=== PATIENT | female | born 1955 | race Caucasian/White ===

== ENCOUNTER 2016-07-30 12:36 | Emergency (ER) | payer OTHER ==
--- NOTE | 2016-07-30 15:58 | ED NURSING NOTES ---
Clinical Report - Nurses [facility] [place] [address] 07/30/2016 12:40 Patient: SUNDAR CARTER TRIAGE Triage time 12:47. Acuity: LEVEL 3. Chief Complaint: DIZZINESS and WEAKNESS and (fatigued). Alert. --13:00 Yvrose Solorzano R.N. 12:46 07/30/16. BP: 150/68. HR: 67. RR: 18. O2 saturation: 95%. Temp: 98.3 F. Pain level now: 07/16. Additional comments: Pt states her neck muscles feel tight and painful, rates it 07/16. --13:00 Yvrose Solorzano R.N. Weight: 49.8 kg stated. Height/Length: 65 inches Per Patient. BMI: 18.3. --12:54 Yvrose Solorzano R.N. Medications Vitamin D Oral. --13:03 Yvrose Solorzano R.N. Allergies No Known Drug Allergy. --12:53 Yvrose Solorzano R.N. History Arrived by private vehicle. Historian: patient. Accompanied by spouse. Primary physician (William). This started sinus pain for 2 weeks ago, was seen at [facility] 7 days ago, and seen today at [facility], states neck x ray was normal. She has had nausea. PAST MEDICAL HX: Immunizations: up-to-date. SOCIAL HX: Former smoker, end date 11/2015. No alcohol use or drug use. No infectious disease exposure. NUTRITIONAL RISK ASSESSMENT: The nutritional risk assessment revealed no deficiencies. FUNCTIONAL ASSESSMENT: Functional assessment: no impairments noted. --13:00 Yvrose Solorzano R.N. PROBLEMS: Hypercholesterolemia. --12:56 Yvrose Solorzano R.N. ADDITIONAL SURGERIES: . --12:56 Yvrose Solorzano R.N. Interventions ID band on patient. To room. --13:00 Yvrose Solorzano R.N. PHYSICAL ASSESSMENT 13:11 07/30/16. Patient gowned. GENERAL / NEURO / PSYCH: Oriented X 4. Alert. --13:11 Yvrose Solorzano R.N. GENERAL / NEURO / PSYCH: ( [facility] sent pt over, stated BP was 191/91.). --13:16 Yvrose Solorzano R.N. NURSING PROGRESS NOTES 13:10 07/30/2016 Site #1 started via IV in the right forearm with an 20g angiocath, with aseptic technique and good blood return; one attempt. Blood drawn: rainbow set. Labeled in the presence of the patient and sent to the lab. Saline lock flushed with 10 mL saline. --13:10 Yvrose Solorzano R.N. 14:31 07/30/16. BP: 133/50 taken while lying. HR: 58. --14:31 Yvrose Solorzano R.N. 14:31 07/30/16. BP: 143/76 taken while sitting. HR: 62. RR: 18. --14:32 Yvrose Solorzano R.N. 14:32 07/30/16. BP: 128/69. HR: 61. RR: 17. Additional comments: standing. --14:33 Yvrose Solorzano R.N. EKG time: (14:24). EKG was performed by a tech and shown to the ED physician. --14:46 Jazmín Elliott 15:00 07/30/16. BP: 125/64. HR: 59. RR: 18. O2 saturation: 94%. --16:16 Yvrose Solorzano R.N. late entry - 12:50. Head of bed elevated. Reassurance given. Patient identifiers checked. Call light placed in reach. Bed placed in lowest position. Patient ready for evaluation- chart flagged and ED physician notified. --16:17 Yvrose Solorzano R.N. DISPOSITION / DISCHARGE Departure time: 1600. Condition at departure: improved. No learning barriers present. Discharge instructions provided and reviewed with the patient and spouse. Reviewed warnings (use slow, shallow breathing with a assistant softball coach for dizziness). Reviewed medication(s) side effects information. Prescription(s) given to the patient. Reviewed referral to family practice for followup. Patient and spouse verbalized understanding. Written instructions provided. The patient was discharged home and accompanied by spouse. She left the Emergency Department ambulatory and via private vehicle. --16:19 Yvrose Solorzano R.N. 16:00 07/30/16. BP: 136/63. HR: 61. RR: 18. O2 saturation: 95%. --16:19 Yvrose Solorzano R.N. Locked/Released at 07/30/2016 16:20 by Yvrose Solorzano R.N.
--- NOTE | 2016-07-30 15:58 | ED CLINICAL REPORT ---
Clinical Report - Physicians/Mid Levels [facility] [address] [place] [address] 07/30/2016 12:40 [id number] Time Seen: 13:59. HISTORY OF PRESENT ILLNESS Chief Complaint: DIZZINESS. Severity described as moderate at its maximum. When seen in the E.D., it was almost gone. Modifying factors- (Worse when standing.). Not described as a sense of rotation, movement or confusion. Described as feeling off balance, light-headed, faint and weak all over. This started 1 weeks and is still present. It has been waxing/waning. No nausea, vomiting, hearing loss, tinnitus or ear pain. (Off balance and seasick Intermittently and neck hurting for 2 weeks. Today Ms Carter noted that limbs felt heavy and that both arms and both legs felt tingly and she felt as though she might faint.). Similar symptoms previously: Once. ( Years ago). Recent medical care: The patient was seen recently by a health care provider. ( Neck pain Chiropractor [facility] sent here). REVIEW OF SYSTEMS No headache, double vision, chest pain, black stools or bloody stools. No fever, sore throat, cough, difficulty breathing or abdominal pain. No difficulty with urination or chills. The patient has had mild palpitations (fast). She has had numbness. R L arm >leg tingling. PAST HISTORY ( PCP: Dr Chichi Hand/García Ops: Hosp None: Dyslipidemia, vertigo, migraines as teen.). Medications: Vitamin D Oral. Allergies: No Known Drug Allergy. ADDITIONAL NOTES The nursing notes have been reviewed. PHYSICAL EXAM Vital Signs: 07/30/2016 16:00 BP: 136/63. HR: 61. RR: 18. O2 saturation: 95%. 07/30/2016 15:00 BP: 125/64. HR: 59. RR: 18. O2 saturation: 94%. 07/30/2016 14:32 BP: 128/69. HR: 61. RR: 17. 07/30/2016 14:31 BP: 143/76. HR: 62. RR: 18. 07/30/2016 14:31 BP: 133/50. HR: 58. 07/30/2016 12:46 BP: 150/68. HR: 67. RR: 18. O2 saturation: 95%. Temp: 98.3 F. Pain level now: 10. Appearance: Alert. No acute distress. Eyes: Pupils equal, round and reactive to light. ENT: Moist mucous membranes. Pharynx normal. Neck: Normal inspection. Neck supple. No carotid bruit. (Mild paraspinous tenderness). CVS: Normal heart rate and rhythm. Heart sounds normal. Respiratory: No respiratory distress. Breath sounds normal. Abdomen: Soft and nontender. Skin: Skin warm. Normal skin color. No rash. Extremities: Extremities exhibit normal ROM. No lower extremity edema. Neuro: Awake. Alert. Oriented X 3. No aphasia. Mood/affect normal. Speech normal. No dysphasia or dysarthria. Cranial nerves II through XII intact. No cerebellar findings. Normal gait. Motor deficit noted. Sensory deficit noted. LABS, X-RAYS, AND EKG EKG: No acute ischemia. Bradycardia. Normal P waves. Normal ABRAHAM. Left anterior fascicular block. Normal ST and T waves. Laboratory Tests: CBC w Diff: (MEHRDAD: 07/30/2016 13:11) ( MsgRcvd 07/30/2016 14:47) Final results Test Result Flag Units (Reference) WHITE BLOOD COUNT 4.6 K/uL (4.5-11.5) RED BLOOD COUNT 4.79 M/uL (4.00-5.20) HEMOGLOBIN 14.5 gm/dL (12.0-16.0) HEMATOCRIT 44.4 % (36.0-46.0) MEAN CELL VOLUME 93 fL (80-100) MEAN CORPUSCULAR HGB 30 pg (26-34) MEAN CORPUSCULAR HGB CONC 33 g/dL (31-37) RED CELL DISTRIBUTION WIDTH 13.6 % (11.6-14.8) PLATELET COUNT 166 K/uL (150-400) NEUTROPHIL % 76.9 H % (50-75) LYMPH % 13.9 L % (25-40) MONO % 7.7 % (3-14) EOSINOPHIL % 1.1 % (0-4) BASOPHIL % 0.4 % (0-2) CMP: (MEHRDAD: 07/30/2016 13:11) ( MsgRcvd 07/30/2016 14:32) Final results Test Result Flag Units (Reference) GLUCOSE 103 mg/dL (70-110) BUN 12 mg/dL (7-18) CREATININE 0.7 mg/dL (0.6-1.3) Estimated GFR >60 mL/min Estimated GFR- >60 mL/min Note: Persistent reduction over 3 months in eGFR<60 mL/min/1.73 m2 defines CKD. Patients with eGFR values>=60 mL/min/1.73 m2 may also have CKD if evidence ofpersistent proteinuria. Additional information may be foundat www.kidney.org. SODIUM 141 mmol/L (136-145) POTASSIUM 4.0 mmol/L (3.5-5.1) CHLORIDE 103 mmol/L (98-107) CARBON DIOXIDE 25 mmol/L (21-32) CALCIUM 9.2 mg/dL (8.5-10.1) TOTAL PROTEIN 7.3 g/dL (6.4-8.2) ALBUMIN 4.2 g/dL (3.3-5.0) BILIRUBIN, TOTAL 0.5 mg/dL (0.0-1.0) ALKALINE PHOSPHATASE 77 U/L (46-116) AST (SGOT) 19 U/L (15-37) ALT (SGPT) 27 U/L (12-78) . PROGRESS AND PROCEDURES Course of Care: 15:35 07/30/16. Labs are negative She was also sent from the [facility] with history of extreme hypertension. With no specific treatment her marked hypertension resolved to near normal levels. The single diagnosis which fits most of the patients signs and symptoms is hyperventilation syndrome. She will need follow up. Differential Diagnosis: I considered hypovolemia, pulmonary embolism, arrhythmia, myocardial infarction, aortic stenosis, aortic dissection, seizure, hypoxia and hypoglycemia as a possible cause of syncope in this patient. This is a partial list of diagnoses considered. I considered labyrinthitis, brainstem TIA and brainstem CVA as a possible cause of dizziness in this patient. I considered epilepsy, alcohol related etiology, overdose and abnormal serum glucose as a possible cause of seizure in this patient. I considered gastritis and gastroenteritis as a possible cause of GI bleed in this patient. Wells clinical prediction rule (PE): No clinical symptoms of DVT, other diagnosis less likely than PE, immobilization or surgery within 4wks, previous DVT or PE or hemoptysis. No malignancy. Heart rate less than 100 per minute. Disposition: Discharged. Condition: good. CLINICAL IMPRESSION Dizziness. Cervical strain. Probable acute hyperventilation syndrome INSTRUCTIONS (ROBAXIN FOR THE NECK MUSCLES SLOW SHALLOW BREATHING WITH A LOGISTICS ASSISTANT FOR THE DIZZINESS. SEE YOUR PCP). Prescription Medications: Robaxin 750 mg: Take 2 orally every 6 hours as needed for muscle spasm. Dispense thirty (30). No refills. Substitution is permissible. Follow-up: Follow up with doctor in ten days. Understanding of the discharge instructions verbalized by patient. (Electronically signed by Brando Teague MD 08/01/2016 12:57)
--- NOTE | 2016-07-30 15:58 | ED CLINICAL REPORT ---
Clinical Report - Physicians/Mid Levels [facility] [address] [place] [address] 07/30/2016 12:40 [id number] Time Seen: 13:59. HISTORY OF PRESENT ILLNESS Chief Complaint: DIZZINESS. Severity described as moderate at its maximum. When seen in the E.D., it was almost gone. Modifying factors- (Worse when standing.). Not described as a sense of rotation, movement or confusion. Described as feeling off balance, light-headed, faint and weak all over. This started 1 weeks and is still present. It has been waxing/waning. No nausea, vomiting, hearing loss, tinnitus or ear pain. (Off balance and seasick Intermittently and neck hurting for 2 weeks. Today Ms Carter noted that limbs felt heavy and that both arms and both legs felt tingly and she felt as though she might faint.). Similar symptoms previously: Once. ( Years ago). Recent medical care: The patient was seen recently by a health care provider. ( Neck pain Chiropractor [facility] sent here). REVIEW OF SYSTEMS No headache, double vision, chest pain, black stools or bloody stools. No fever, sore throat, cough, difficulty breathing or abdominal pain. No difficulty with urination or chills. The patient has had mild palpitations (fast). She has had numbness. R L arm >leg tingling. PAST HISTORY ( PCP: Dr Chichi Hnad/García Ops: Hosp None: Dyslipidemia, vertigo, migraines as teen.). Medications: Vitamin D Oral. Allergies: No Known Drug Allergy. ADDITIONAL NOTES The nursing notes have been reviewed. PHYSICAL EXAM Vital Signs: 07/30/2016 16:00 BP: 136/63. HR: 61. RR: 18. O2 saturation: 95%. 07/30/2016 15:00 BP: 125/64. HR: 59. RR: 18. O2 saturation: 94%. 07/30/2016 14:32 BP: 128/69. HR: 61. RR: 17. 07/30/2016 14:31 BP: 143/76. HR: 62. RR: 18. 07/30/2016 14:31 BP: 133/50. HR: 58. 07/30/2016 12:46 BP: 150/68. HR: 67. RR: 18. O2 saturation: 95%. Temp: 98.3 F. Pain level now: 10. Appearance: Alert. No acute distress. Eyes: Pupils equal, round and reactive to light. ENT: Moist mucous membranes. Pharynx normal. Neck: Normal inspection. Neck supple. No carotid bruit. (Mild paraspinous tenderness). CVS: Normal heart rate and rhythm. Heart sounds normal. Respiratory: No respiratory distress. Breath sounds normal. Abdomen: Soft and nontender. Skin: Skin warm. Normal skin color. No rash. Extremities: Extremities exhibit normal ROM. No lower extremity edema. Neuro: Awake. Alert. Oriented X 3. No aphasia. Mood/affect normal. Speech normal. No dysphasia or dysarthria. Cranial nerves II through XII intact. No cerebellar findings. Normal gait. Motor deficit noted. Sensory deficit noted. LABS, X-RAYS, AND EKG EKG: No acute ischemia. Bradycardia. Normal P waves. Normal ABRAHAM. Left anterior fascicular block. Normal ST and T waves. Laboratory Tests: CBC w Diff: (MEHRDAD: 07/30/2016 13:11) ( MsgRcvd 07/30/2016 14:47) Final results Test Result Flag Units (Reference) WHITE BLOOD COUNT 4.6 K/uL (4.5-11.5) RED BLOOD COUNT 4.79 M/uL (4.00-5.20) HEMOGLOBIN 14.5 gm/dL (12.0-16.0) HEMATOCRIT 44.4 % (36.0-46.0) MEAN CELL VOLUME 93 fL (80-100) MEAN CORPUSCULAR HGB 30 pg (26-34) MEAN CORPUSCULAR HGB CONC 33 g/dL (31-37) RED CELL DISTRIBUTION WIDTH 13.6 % (11.6-14.8) PLATELET COUNT 166 K/uL (150-400) NEUTROPHIL % 76.9 H % (50-75) LYMPH % 13.9 L % (25-40) MONO % 7.7 % (3-14) EOSINOPHIL % 1.1 % (0-4) BASOPHIL % 0.4 % (0-2) CMP: (MEHRDAD: 07/30/2016 13:11) ( MsgRcvd 07/30/2016 14:32) Final results Test Result Flag Units (Reference) GLUCOSE 103 mg/dL (70-110) BUN 12 mg/dL (7-18) CREATININE 0.7 mg/dL (0.6-1.3) Estimated GFR >60 mL/min Estimated GFR- >60 mL/min Note: Persistent reduction over 3 months in eGFR<60 mL/min/1.73 m2 defines CKD. Patients with eGFR values>=60 mL/min/1.73 m2 may also have CKD if evidence ofpersistent proteinuria. Additional information may be foundat www.kidney.org. SODIUM 141 mmol/L (136-145) POTASSIUM 4.0 mmol/L (3.5-5.1) CHLORIDE 103 mmol/L (98-107) CARBON DIOXIDE 25 mmol/L (21-32) CALCIUM 9.2 mg/dL (8.5-10.1) TOTAL PROTEIN 7.3 g/dL (6.4-8.2) ALBUMIN 4.2 g/dL (3.3-5.0) BILIRUBIN, TOTAL 0.5 mg/dL (0.0-1.0) ALKALINE PHOSPHATASE 77 U/L (46-116) AST (SGOT) 19 U/L (15-37) ALT (SGPT) 27 U/L (12-78) . PROGRESS AND PROCEDURES Course of Care: 15:35 07/30/16. Labs are negative She was also sent from the [facility] with history of extreme hypertension. With no specific treatment her marked hypertension resolved to near normal levels. The single diagnosis which fits most of the patients signs and symptoms is hyperventilation syndrome. She will need follow up. Differential Diagnosis: I considered hypovolemia, pulmonary embolism, arrhythmia, myocardial infarction, aortic stenosis, aortic dissection, seizure, hypoxia and hypoglycemia as a possible cause of syncope in this patient. This is a partial list of diagnoses considered. I considered labyrinthitis, brainstem TIA and brainstem CVA as a possible cause of dizziness in this patient. I considered epilepsy, alcohol related etiology, overdose and abnormal serum glucose as a possible cause of seizure in this patient. I considered gastritis and gastroenteritis as a possible cause of GI bleed in this patient. Wells clinical prediction rule (PE): No clinical symptoms of DVT, other diagnosis less likely than PE, immobilization or surgery within 4wks, previous DVT or PE or hemoptysis. No malignancy. Heart rate less than 100 per minute. Disposition: Discharged. Condition: good. CLINICAL IMPRESSION Dizziness. Cervical strain. Probable acute hyperventilation syndrome INSTRUCTIONS (ROBAXIN FOR THE NECK MUSCLES SLOW SHALLOW BREATHING WITH A PARACHUTE/COMBATANT DIVER OFFICER FOR THE DIZZINESS. SEE YOUR PCP). Prescription Medications: Robaxin 750 mg: Take 2 orally every 6 hours as needed for muscle spasm. Dispense thirty (30). No refills. Substitution is permissible. Follow-up: Follow up with doctor in ten days. Understanding of the discharge instructions verbalized by patient. (Electronically signed by Brando Teague MD 08/01/2016 12:57)
--- NOTE | 2016-07-30 15:58 | ED ORDER SUMMARY ---
..... Patient: SUNDAR CARTER OrderSheet [facility] VisitID: [id number] [place] [address] 60y, F Registration Date/Time: 07/30/2016 ORDER SHEET Weight: 49.8 kg (stated) Allergies: No Known Drug Allergy GENERAL ORDERS: EKG - ER Stat (14:10 07/30/2016 Dariana AGUILAR) (14:43 Jose) CBC w Diff Urgent (14:17 07/30/2016 Dariana AGUILAR) (Ack 14:43 Jose) (14:47 ALawrence ER Tech1) CMP Urgent (14:17 07/30/2016 Dariana AGUILAR) (Ack 14:43 Jose) (14:47 ALawrence ER Tech1) Vitals - Orthostatic (14:17 07/30/2016 Dariana AGUILAR) (14:33 LS[place] R.N.) MEDICATION ORDERS: IV FLUIDS: IV Saline Lock (13:09 07/30/2016 LSullivan R.N. verbal order read back to Dariana AGUILAR) (13:10 LS[place] R.N.) ORDER SHEET NOTES: [Electronically signed by Yvrose Solorzano R.N. (16:20 07/30/2016)] [Electronically signed by Brando Teague MD (12:57 08/01/2016)] [Electronically locked/signed by Yvrose Solorzano R.N. (16:20 07/30/2016)]
--- NOTE | 2016-07-30 15:58 | ED ORDER SUMMARY ---
..... Patient: SUNDAR CARTER OrderSheet [facility] VisitID: [id number] [place] [address] 60y, F Registration Date/Time: 07/30/2016 ORDER SHEET Weight: 49.8 kg (stated) Allergies: No Known Drug Allergy GENERAL ORDERS: EKG - ER Stat (14:10 07/30/2016 Dariana AGUILAR) (14:43 Jose) CBC w Diff Urgent (14:17 07/30/2016 Dariana AGUILAR) (Ack 14:43 Jose) (14:47 ALawrence ER Tech1) CMP Urgent (14:17 07/30/2016 Dariana AGUILAR) (Ack 14:43 Jose) (14:47 ALawrence ER Tech1) Vitals - Orthostatic (14:17 07/30/2016 Dariana AGUILAR) (14:33 LS[place] R.N.) MEDICATION ORDERS: IV FLUIDS: IV Saline Lock (13:09 07/30/2016 LS[place] R.N. verbal order read back to Dariana AGUILAR) (13:10 LS[place] R.N.) ORDER SHEET NOTES: [Electronically signed by Yvrose Solorzano R.N. (16:20 07/30/2016)] [Electronically signed by Brando Teague MD (12:57 08/01/2016)] [Electronically locked/signed by Yvrose Solorzano R.N. (16:20 07/30/2016)]
--- NOTE | 2016-07-30 15:58 | ED NURSING NOTES ---
Clinical Report - Nurses [facility] [place] [address] 07/30/2016 12:40 Patient: SUNDAR CARTER TRIAGE Triage time 12:47. Acuity: LEVEL 3. Chief Complaint: DIZZINESS and WEAKNESS and (fatigued). Alert. --13:00 Yvrose Solorzano R.N. 12:46 07/30/16. BP: 150/68. HR: 67. RR: 18. O2 saturation: 95%. Temp: 98.3 F. Pain level now: 07/16. Additional comments: Pt states her neck muscles feel tight and painful, rates it 07/16. --13:00 Yvrose Solorzano R.N. Weight: 49.8 kg stated. Height/Length: 65 inches Per Patient. BMI: 18.3. --12:54 Yvrose Solorzano R.N. Medications Vitamin D Oral. --13:03 Yvrose Solorzano R.N. Allergies No Known Drug Allergy. --12:53 Yvrose Solorzano R.N. History Arrived by private vehicle. Historian: patient. Accompanied by spouse. Primary physician (William). This started sinus pain for 2 weeks ago, was seen at [facility] 7 days ago, and seen today at [facility], states neck x ray was normal. She has had nausea. PAST MEDICAL HX: Immunizations: up-to-date. SOCIAL HX: Former smoker, end date 11/2015. No alcohol use or drug use. No infectious disease exposure. NUTRITIONAL RISK ASSESSMENT: The nutritional risk assessment revealed no deficiencies. FUNCTIONAL ASSESSMENT: Functional assessment: no impairments noted. --13:00 Yvrose Solorzano R.N. PROBLEMS: Hypercholesterolemia. --12:56 Yvrose Solorzano R.N. ADDITIONAL SURGERIES: . --12:56 Yvrose Solorzano R.N. Interventions ID band on patient. To room. --13:00 Yvrose Solorzano R.N. PHYSICAL ASSESSMENT 13:11 07/30/16. Patient gowned. GENERAL / NEURO / PSYCH: Oriented X 4. Alert. --13:11 Yvrose Solorzano R.N. GENERAL / NEURO / PSYCH: ( [facility] sent pt over, stated BP was 191/91.). --13:16 Yvrose Solorzano R.N. NURSING PROGRESS NOTES 13:10 07/30/2016 Site #1 started via IV in the right forearm with an 20g angiocath, with aseptic technique and good blood return; one attempt. Blood drawn: rainbow set. Labeled in the presence of the patient and sent to the lab. Saline lock flushed with 10 mL saline. --13:10 Yvrose Solorzano R.N. 14:31 07/30/16. BP: 133/50 taken while lying. HR: 58. --14:31 Yvrose Solorzano R.N. 14:31 07/30/16. BP: 143/76 taken while sitting. HR: 62. RR: 18. --14:32 Yvrose Solorzano R.N. 14:32 07/30/16. BP: 128/69. HR: 61. RR: 17. Additional comments: standing. --14:33 Yvrose Solorzano R.N. EKG time: (14:24). EKG was performed by a tech and shown to the ED physician. --14:46 Jazmín Elliott 15:00 07/30/16. BP: 125/64. HR: 59. RR: 18. O2 saturation: 94%. --16:16 Yvrose Solorzano R.N. late entry - 12:50. Head of bed elevated. Reassurance given. Patient identifiers checked. Call light placed in reach. Bed placed in lowest position. Patient ready for evaluation- chart flagged and ED physician notified. --16:17 Yvrose Solorzano R.N. DISPOSITION / DISCHARGE Departure time: 1600. Condition at departure: improved. No learning barriers present. Discharge instructions provided and reviewed with the patient and spouse. Reviewed warnings (use slow, shallow breathing with a softball coach for dizziness). Reviewed medication(s) side effects information. Prescription(s) given to the patient. Reviewed referral to family practice for followup. Patient and spouse verbalized understanding. Written instructions provided. The patient was discharged home and accompanied by spouse. She left the Emergency Department ambulatory and via private vehicle. --16:19 Yvrose Solorzano R.N. 16:00 07/30/16. BP: 136/63. HR: 61. RR: 18. O2 saturation: 95%. --16:19 Yvrose Solorzano R.N. Locked/Released at 07/30/2016 16:20 by Yvrose Solorzano R.N.
--- NOTE | 2016-08-01 12:57 | ED MED RECONCILIATION SUMMARY ---
Patient: SUNDAR CARTER Medication Reconciliation Report [facility] VisitID: [id number] [address] [place] [address] 60y, F Registration Date/Time: 07/30/2016 Weight: 49.8 kg Height/Length: 65 in. BMI: 18.3 ALLERGIES: No Known Drug Allergy The patient's Home Medications are listed below: THE FOLLOWING MEDICATIONS NEED TO BE RECONCILED: Vitamin D Oral The source(s) of the original Home Medication information: Not obtained. The following Medications were given to the patient in the Emergency Department: None. The following Medications were prescribed to the patient: Robaxin 750 mg: Take 2 orally every 6 hours as needed for muscle spasm. Dispense thirty (30). No refills. Substitution is permissible. -- Brando Teague MD
--- NOTE | 2016-08-01 12:57 | ED MAR SUMMARY ---
..... Medication Administration Record [facility] [address] [place], [place] [id number] Patient: SUNDAR CARTER Visit ID: [id number] 60y, F Weight: 49.8 kg Height/Length: 65 in BMI: 18.3 ALLERGIES: No Known Drug Allergy
--- NOTE | 2016-08-01 12:57 | ED MAR SUMMARY ---
..... Medication Administration Record [facility] [address] [place], [place] [id number] Patient: SUNDAR CARTER Visit ID: [id number] 60y, F Weight: 49.8 kg Height/Length: 65 in BMI: 18.3 ALLERGIES: No Known Drug Allergy
--- NOTE | 2016-08-01 12:57 | ED DISCHARGE INSTRUCTIONS ---
Patient: SUNDAR CARTER General Instructions [facility] VisitID: [id number] [place] [address] 60y, F Registration Date/Time: 07/30/2016 Dizziness. Cervical strain. Probable acute hyperventilation syndrome INSTRUCTIONS (ROBAXIN FOR THE NECK MUSCLES SLOW SHALLOW BREATHING WITH A ADAPTED PHYSICAL EDUCATION AIDE FOR THE DIZZINESS. SEE YOUR PCP). Prescription Medications: Robaxin 750 mg: Take 2 orally every 6 hours as needed for muscle spasm. Dispense thirty (30). No refills. Substitution is permissible. Follow-up: Follow up with doctor in ten days. Understanding of the discharge instructions verbalized by patient. ADDITIONAL INFORMATION Hyperventilation Syndrome Hyperventilation Syndrome is a condition in which you lose control of your breathing. You may find yourself breathing too fast and/or too deep. This can be triggered by pain, anxiety and emotional stress. If hyperventilation continues for more than a few minutes, it can lead to a number of frightening symptoms, such as: Numbness and tingling of the hands, feet and face Clenching of the fingers or toes Dizziness Feeling like you cannot get enough air Chest pains Fainting or feeling like you are going to faint Once these symptoms begin, it is often hard to stop them because they lead to a cycle of more anxiety and more hyperventilation. It is important to understand that this is not a life-threatening condition and it will pass once you are able to relax. Relaxation and stress management methods can be learned and practiced in advance. These can help in the event of a future attack. Home Care: 1) Rest today until feeling back to normal. 2) If symptoms return: Sit or lie down. Remember that what is happening to you is temporary and will pass. Use the relaxation methods you have learned. It is no longer recommended to breathe into a paper bag. Follow Up with your doctor or as directed by our staff if symptoms recur. Get Prompt Medical Attention if any of the following occur: Increasing shortness of breath Fever of 100.0 F (38 C) or higher, or as directed by your healthcare provider Coughing up blood Chest pain that is made worse with each breath Redness, pain or swelling of the leg Ringing in your ears, Severe headache Weakness or fainting Neck Sprain Or Strain A sudden force that causes turning or bending of the neck (such as in a car accident) can stretch or tear muscles (strain) and ligaments (sprain) and cause neck pain. Sometimes neck pain occurs after a simple awkward movement. In either case, muscle spasm is commonly present and contributes to the pain. Unless you had a forceful physical injury (for example, a car accident or fall), X-rays are usually not ordered for the initial evaluation of neck pain. If pain continues and dose not respond to medical treatment, X-rays and other tests may be performed at a later time. Home care The following guidelines will help you care for your injury at home: You may feel more soreness and spasm the first few days after the injury. Reduce your activity level until symptoms begin to improve. When lying down, use a comfortable pillow that supports the head and keeps the spine in a neutral position. The position of the head should not be tilted forward or backward. Use ice packs (ice in a plastic bag, wrapped in a towel) to treat acute pain. Apply for 20 minutes every 24 hours during the first two days. Then, begin local heat (hot shower, hot bath or heating pad) andmassageto reduce muscle spasm. Some patients feel best alternating hot and cold treatments, or just staying with one method only. Do what feels the best to you and gives the most relief. You may use acetaminophen or ibuprofen to control pain, unless another pain medicine was prescribed.If you have chronic liver or kidney disease or ever had a stomach ulcer or GI bleeding, talk with your doctor before using these medicines. Follow-up care Follow up with your physician or this facility if your symptoms do not show signs of improvement. Physical therapy may be needed. If you had X-rays today, they didnt show any broken bones, breaks, or fractures. Sometimes fractures dont show up on the first X-ray. Bruises and sprains can sometimes hurt as much as a fracture. These injuries can take time to heal completely. If your symptoms dont improve or they get worse, talk with your doctor. You may need a repeat X-ray. When to seek medical care Get prompt medical attention if any of the following occur: Pain becomes worse or spreads into your arms Weakness or numbness in one or both arms You have been given the following additional information: Hyperventilation Syndrome Neck Sprain/Strain (Electronically signed by Brando Teague MD 08/01/2016 12:57)
--- NOTE | 2016-08-01 12:57 | ED MED RECONCILIATION SUMMARY ---
Patient: SUNDAR CARTER Medication Reconciliation Report [facility] VisitID: [id number] [address] [place] [address] 60y, F Registration Date/Time: 07/30/2016 Weight: 49.8 kg Height/Length: 65 in. BMI: 18.3 ALLERGIES: No Known Drug Allergy The patient's Home Medications are listed below: THE FOLLOWING MEDICATIONS NEED TO BE RECONCILED: Vitamin D Oral The source(s) of the original Home Medication information: Not obtained. The following Medications were given to the patient in the Emergency Department: None. The following Medications were prescribed to the patient: Robaxin 750 mg: Take 2 orally every 6 hours as needed for muscle spasm. Dispense thirty (30). No refills. Substitution is permissible. -- Brando Teague MD
== END 2016-07-30 16:00 | disposition home or self-care (01) ==
LOC: ED SRH 12:36
DX: R42 Dizziness and giddiness (principal); S16.1XXA Strain of muscle, fascia and tendon at neck level, initial encounter; W19.XXXA Unspecified fall, initial encounter; Y93.9 Activity, unspecified; Y99.9 Unspecified external cause status; Y92.9 Unspecified place or not applicable
CPT/HCPCS: 90100; 95059